=== PATIENT | female | born 1980 | race Caucasian/White ===

== ENCOUNTER 2020-09-22 09:12 | Outpatient (CLI) | payer BC ==
[2020-09-22] MEDS ORDERED: Iopamidol 370 76% 100 ML VIAL ONE (10:46)
--- NOTE | 2020-09-22 17:55 | CT ---
CT ABDOMEN AND PELVIS WITH CONTRAST: Date: 09-22-2020 FINDINGS: The lung bases are clear. The liver, spleen, pancreas, kidneys, adrenal glands and abdominal aorta sh owed no acute findings. The gallbladder has a rim-like calcification in its neck. I suspect that ther e is a partially calcified gallstone here. A follow up ultrasound is recommended. There is no intrahe patic ductal dilation. The common bile duct does not seem dilated. The patient's right ureter is slightly larger than the left, particularly near the lumbosacral juncti on, but it then assumes a more normal diameter. There is no hydronephrosis. This may have just been s ome parastalsis. The bowel shows no distention, wall thickening, or other acute change. The only area that was even sl ightly questionable was some of the loops of proximal small bowel maybe being slightly thickened, but this finding was marginal, at best. No free air or free fluid was present. CT of the pelvis shows no pelvic masses, fluid collections, or inflammatory changes. IMPRESSION: Possible gallstone in the neck of the gallbladder. A follow up elective ultrasound is suggested. Code T POS: HOME
== END 2020-09-22 09:13 | disposition home or self-care (01) ==
LOC: BURCT 09:12
PROVIDERS: ATTEND Nurse Practitioner Family
DX: R14.0 Abdominal distension (gaseous) (principal); K21.9 Gastro-esophageal reflux disease without esophagitis; R14.3 Flatulence; R19.5 Other fecal abnormalities
CPT/HCPCS: 74177; Q9967